=== PATIENT | female | born 1970 | race African-American/Black ===

== ENCOUNTER → 2016-12-04 | Outpatient (CLI) | payer OTHER ==
[~2016-12-04] MED LIST: BACTRIM DS TABL1 TA1 PO; FLOVENT DI50 MCG/DIS IH; LORTAB 5/500 TA1 TA1 PO; NO MEDICATIONS; ORTHO-NOVUM1 TAB
--- NOTE | ~2016-12-04 | MY29 ---
[facility] A Service of [facility] RADIOLOGY TEXT RESULTS PATIENT: GIOVANY SAUL LOCATION: [facility] : 66 UNIT #: [id number] AGE: [address]: Leigha Sanford MD SEX: F ORDER DR: [id number] [facility] [address] [place], [place] [address] [id number] O MR#: [id number] Acc #: [id number] NAME: GIOVANY SAUL : 1970 SEX: F STUDY DATE/TIME: 12/04/2016 15:42 UNIT: [facility] ROOM: STUDY DESCRIPTION: MY XIAO SCREENING W/ CAD BILAT Attending Physician: Leigha Sanford M.D. Ordering Physician: Leigha Sanford M.D. Primary Care Physician: Leigha Sanford M.D. MEDICAL IMAGING REPORT This report is preliminary unless electronic signature is present EXAM Digital screening mammogram, 12/04/2016 HISTORY 46-year-old woman, positive family history of ovarian cancer. Annual screen. COMPARISON Mammograms date to 05/20/2008, with most recent 07/23/2015. FINDINGS Digital imaging of each breast was completed utilizing a two-view examination of each breast in craniocaudal and mediolateral-oblique projections. Review and interpretation of digital mammograms include a second review in conjunction with FDA-approved CAD device. There is a normal parenchymal presentation bilaterally consistent with the patient's age. There are no breast masses imaged and no parenchymal asymmetry is visualized. There are no suspicious microcalcifications and I see no focal architectural disturbance. IMPRESSION Negative screening digital mammogram. One-year followup recommended. Patients over the age of 40 are entered into a reminder system with target due date for the next mammogram. A result letter will also be sent to the patient. BIRADS: 1 Negative Dictated by... Troy óGmez M.D. [facility] A Service of [facility] RADIOLOGY TEXT RESULTS PATIENT: GIOVANY SAUL LOCATION: [facility] : 66 UNIT #: [id number] AGE: [address]: Leigha Sanford MD SEX: F ORDER DR: THIS IS AN ELECTRONICALLY VERIFIED REPORT Troy Gómez M.D. at 12/05/2016 8:10 AM ANTIONE/tim TD: 12/04/2016 23:39 JOB #: [id number] MEDICAL IMAGING REPORT Page 1 of 1 COPY
== END | disposition home or self-care (01) ==
LOC: CWCC 15:25
DX: Z12.31 Encounter for screening mammogram for malignant neoplasm of breast (principal); Z80.41 Family history of malignant neoplasm of ovary
CPT/HCPCS: G0202